=== PATIENT | female | born 1955 | race Caucasian/White ===

== ENCOUNTER 2016-11-12 06:44 | Emergency (ER) | payer OTHER ==
[2016-11-12 08:31] VITALS: BP 151/97
== END 2016-11-12 08:31 | disposition home or self-care (01) ==
LOC: ED 06:44
DX: S63.591A Other specified sprain of right wrist, initial encounter (principal); I10 Essential (primary) hypertension; X50.0XXA Overexertion from strenuous movement or load, initial encounter; Y93.89 Activity, other specified; Y99.8 Other external cause status; Y92.89 Other specified places as the place of occurrence of the external cause

== ENCOUNTER 2017-01-03 13:52 | Emergency (ER) | payer OTHER ==
[~2017-01-03] VITALS: Ht 167.6 cm; Wt 93.0 kg
[2017-01-03 15:48] LABS: BASOPHIL % 0.4 % (0-2); PLATELET COUNT 200 x10^3mcL (130-400); RED CELL DISTRIBUTION WIDTH 13.5 % (11.5-14.5)
[2017-01-03 15:59] LABS: CALCIUM 9.2 mg/dL (8.5-10.1); CARBON DIOXIDE 25.6 mmol/L (21-32); CHLORIDE SERUM 108 mmol/L (98-107); CREATININE SERUM 0.8 mg/dL (0.6-1.0); GFR1 > 60 mL/min; GLUCOSE SERUM 132 mg/dL (74-106); SODIUM SERUM 141 mmol/L (136-145)
[2017-01-03 16:03] LABS: ALBUMIN 3.7 g/dL (3.4-5.0); ALKALINE PHOSPHATASE 109 U/L (46-116); ALT/SGPT 142 U/L (14-59); AST/SGOT 89 U/L (15-37); CHOLESTEROL 124 mg/dL (<200); HDL CHOLESTEROL 61 mg/dL (40-60); MAGNESIUM 2.1 mg/dL (1.8-2.4); PHOSPHOROUS 3.5 mg/dL (2.5-4.9); TOTAL PROTEIN, SERUM 8.4 g/dL (6.4-8.2)
[2017-01-03 17:36] LABS: microscopic required? YES
[2017-01-03 17:37] LABS: urine erythrocyte NEGATIVE (NEGATIVE)
[2017-01-03 18:15] VITALS: BP 145/82
== END 2017-01-03 18:17 | disposition home or self-care (01) ==
LOC: ED 13:52
PROVIDERS: Emergency Medicine
DX: R55 Syncope and collapse (principal); R21 Rash and other nonspecific skin eruption; I10 Essential (primary) hypertension
CPT/HCPCS: J7030; Q0092

== ENCOUNTER 2018-08-23 10:11 | Emergency (ER) | payer OTHER ==
[~2018-08-23] VITALS: Ht 170.2 cm; Wt 89.8 kg
[2018-08-23 10:16] VITALS: BP 155/86; Ht 170.2 cm; Wt 89.8 kg
== END 2018-08-23 10:34 | disposition home or self-care (01) ==
LOC: ED 10:11
DX: N64.89 Other specified disorders of breast (principal); I10 Essential (primary) hypertension; Z98.890 Other specified postprocedural states

== ENCOUNTER 2018-11-04 06:33 | Emergency (ER) | payer OTHER ==
[~2018-11-04] VITALS: Ht 170.2 cm; Wt 89.8 kg
[2018-11-04 06:38] VITALS: Ht 170.2 cm; Wt 89.8 kg
[2018-11-04 07:29] VITALS: BP 122/85
== END 2018-11-04 07:29 | disposition home or self-care (01) ==
LOC: ED 06:33
DX: S80.861A Insect bite (nonvenomous), right lower leg, initial encounter (principal); M79.604 Pain in right leg; M54.41 Lumbago with sciatica, right side; W57.XXXA Bitten or stung by nonvenomous insect and other nonvenomous arthropods, initial encounter; Y93.89 Activity, other specified; Y92.89 Other specified places as the place of occurrence of the external cause; Y99.8 Other external cause status
CPT/HCPCS: J1885

== ENCOUNTER 2019-05-09 05:41 | Emergency (ER) | payer OTHER ==
[~2019-05-09] VITALS: Ht 170.2 cm; Wt 86.2 kg
[2019-05-09 05:45] VITALS: Ht 170.2 cm; Wt 86.2 kg
[2019-05-09 07:50] VITALS: BP 119/75
== END 2019-05-09 07:50 | disposition home or self-care (01) ==
LOC: ED 05:41
DX: M54.41 Lumbago with sciatica, right side (principal); I10 Essential (primary) hypertension; Z90.710 Acquired absence of both cervix and uterus
CPT/HCPCS: J1885